=== PATIENT | female | born 1960 | race Caucasian/White ===

== ENCOUNTER 2023-01-22 08:30 | Outpatient (RCR) | payer OTHER, SELFPAY ==
--- NOTE | 2022-12-24 14:02 | HP.PTEVAL ---
Patient's Visit Information FLORES RILEY is a 62 year old F referred to Physical Therapy by Dr. Israel Manzo DO with a diagnosis of BURSITIS. Date of Evaluation: 12/24/22 Physical Therapist: Crystal Barrow PT, Cert MDT - Visit Plan Frequency: 2-3x /Week Duration: 4-6 Weeks Plan: LE ROM, STRETCHING AND STRENGTHENING INCLUDING IT BAND STRETCHING AND R GLUT MED STRENGTHENING. CORE STRENGTHENING. FOCUS ON STRENGTH AND STABILITY TO IMPROVE GAIT. 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 Disability: NO. Present symptoms: INTERMITTENT LEFT HIP PAIN. Present since: CHRONIC - YEARS AGO. Pain Scale: WORST 5/10 (BAD ENOUGHT TO MAKE ME LIMP), 0/10. Currently: 0/10. Is it getting better, worse or staying the same: STAYING THE SAME. Commenced as a result of: NO APPARENT REASON. Symptoms at onset: SAME. Worse: WALKING ON A HARD SURFACE. Better: AVOIDING WALKING ON HARD SURFACES. Disturbed sleep: NO. Previous history/Previous treatment: 6 CHIROPRACTIC SESSIONS RECENTLY FOR HIP PAIN WITH NO BENEFIT. CHIROPRACTIC TREATMENTS ALSO INCLUDED BACK ADJUSTMENTS FOR PELVIC TILT ISSUES. NO SIGNIFICANT BACK HISTORY. Treatment this episode: NSAID AND CORTISONE SHOT 12/12/22. PATIENT DOES NOT NOTICE ANY IMPROVEMENT YET. Coughing/sneezing/straining: NO. Gait: CAUSES LIMPING AT TIMES. Bowel or Bladder Dysfunction: NO. Accidents: NO. Unexplained weight loss: NO. Imaging: L HIP X-RAY RECENTLY - LOOKED GOOD PER PATIENT REPORT. PMH/Recent major surgery: POSTERIOR TIBIALIS TENDON DYSFUNCTION - CHRONIC AND WEARS BRACE WHEN WALKING (AT LEAST 5 YEARS). R FOOT BUNION WITH SIGNIFICANT TOE CROSSING - CONSIDERED SURGERY IN THE PAST BUT NO PAIN. - Objective Sitting/Standing Posture: INCREASED KYPHOSIS. NORMAL TO INCREASED LORDOSIS. NO RELEVANT LATERAL SHIFT. Active Correction of posture: NE. Other Observations: INDEP GAIT INTO PT WITH R ANKLE BRACE. R KNEE GENU VALGUS AND ANKLE PRONATION. PELVIC DROP DURING L SWING PHASE OF GAIT. Sensory deficit: SHALOM LE LIGHT TOUCH SENSATION GROSSLY INTACT AND SYMMETRICAL. ROM deficit: SHALOM LE'S WFL BUT R ANKLE INV/EV NOT TESTING. BRACE ON THROUGHOUT TESTING. MILD L IT BAND TIGHTNESS. Motor deficit: PATIENT ABLE TO WALK ON TOES AND WALK ON HEELS WITHOUT UE ASSIST. SHALOM LE STRENGTH GROSSLY 5/5 WITH MMT'ING EXCEPT HIPS 4-/5. POOR CORE STRENGTH. Dural Signs: NEGATIVE SHALOM LE'S. Lumbar mvmt loss: flex - NIL. ext - MIN. R SG - MIN. L SG - MIN. PATIENT DENIES PAIN IN HIP AND BACK WITH TESTING. Palpation: TENDERNESS WITH PALPATION OF L GREATER TROCH REGION. TREATMENT: INSTRUCTED IN IT BAND STRETCHING. WRITTEN HEP INSTRUCTIONS GIVEN. TRIED STANDING AND SUPINE STRETCHING WITH MUCH BETTER RESULT AND ABILITY TO USE PROPER TECHNIQUE IN LYING. ONLY GAVE HOME INSTRUCTION FOR LYING. ALSO CORRECTED PATIENTS TECHNIQUE WITH SELF SHALOM PIRIFORMIS STRETCHING SHE HAS BEEN DOING ON HER OWN. ALSO INSTRUCTED PATIENT IN PROPER POSTURE CONTROL IN SITTING AND FREQUENT BREAKS FROM SITTING. - Balance/Special Test Scores Lower Extremity Functional Score: 67 - Goals Goal 1:: DECREASE C/O L HIP PAIN Goal Time Frame: 4-6 Weeks Goal 2:: IMPROVE WALKING FUNCTION ON HARD SURFACES Goal Time Frame: 4-6 Weeks Goal 3:: INDEP HEP Goal Time Frame: 4-6 Weeks - Anticipated Interventions Patient/Client Instruction: Educate patient on: Condition, Plan of Care, Risk Factors For the Purpose of:: To improve self management Therapeutic Exercise to Include: Strength training, Body mechanics, Postural training, Flexibilty training, Neuromotor development, In an aquatic setting, Dynamic Lumbar Stabilization For the Purpose of:: To decrease pain, To increase ROM, To improve muscle performance and motor function, To increase tolerance to activity/condition/position, To improve ability of physical actions for home/community/work/leisure Cryotherapy (ice pack, ice massage): Yes Thermo therapy (hot pack): Yes Ultrasound (thermal/non thermal): Yes For the Purpose of:: To decrease pain, To improve nutrient delivery to tissue Thank you for the opportunity to evaluate your patient. For Medicare and Medicare HMO plans, please review the plan of care and approve it. It will need to be FAXED BACK to us at [phone] for Medicare purposes. For Medicare only, by signing this I certify the plan of care. Please let me know if there are questions or concerns regarding this plan of care. Physician Signature: Date:
--- NOTE | 2023-01-22 09:00 | HP.PTDCSUM ---
It has been my pleasure to treat FLORES RILEY referred by Dr. Israel Manzo DO, with the diagnosis of Left Hip BURSITIS for a total of 9 visit(s). Discharge Date: Please see the following information for a summary of their discharge status. Subjective: PATIENT REPORTS SHE IS NO WORSE BUT NOT MUCH BETTER. STATES SHE FEELS A LOT STRONGER BUT THE PAIN ISN'T BETTER. REPORTS SHE HAD TO DO SOME PROLONGED WALKER ON HARD SURFACE AND HER HIP WAS KILLING HER. % Improvement: 10 Objective/Function: PATIENT WAS SEEN TODAY FOR RE-ASSESSMENT OF PROGRESS TOWARD THE SET PT GOALS AND THE NEED FOR FURTHER PHYSICAL THERAPY VS READINESS FOR DISCHARGE. SUBJECTIVE REPORTS OF L HIP PAIN ARE NOT IMPROVING AND LEFS SCORE IS WORSE. UPON EXAM TODAY THERE ARE NO SIGNIFICANT OBJECTIVE CHANGES SINCE INITIAL EVAL EXCEPT INCREASED SHALOM HIP STRENGTH TO 4/5. L HIP EXTERNAL ROTATION STRENGTH TESTING PROVOKES L LATERAL HIP PAIN. PATIENT IS INDEP WITH A TOLERABLE HEP. Goal 1:: DECREASE C/O L HIP PAIN Goal Progress: Not Progressing Goal 2:: IMPROVE WALKING FUNCTION ON HARD SURFACES Goal Progress: Not Progressing Goal 3:: INDEP HEP Goal Progress: Goal Met Plan: D/C DUE TO LACK OF PROGRESS WITH L HIP PAIN AND WALKING FUNCTION. PHYSICIAN RE-ASSESSMENT RECOMMENDED. PATIENT AGREEABLE. If there are questions or concerns regarding this patient's physical therapy, please feel free to call me at [phone]. Thank you for the referral of this patient. Sincerely, Crystal Barrow, PT, Cert MDT Balance/Gait/Functional tests - Balance/Special Test Scores Lower Extremity Functional Score: 57
== END 2023-01-22 19:00 | disposition home or self-care (01) ==
LOC: PT 08:30
PROVIDERS: PCP Family Medicine; Referring Provider Orthopaedic Surgery; Visit Provider Orthopaedic Surgery
DX: M70.60 Trochanteric bursitis, unspecified hip (principal)
CPT/HCPCS: 97110; 97161; 97164; 97530

== ENCOUNTER → 2023-01-30 | Outpatient (CLI) | payer OTHER, SELFPAY ==
--- NOTE | 2023-01-30 07:45 | MRI_ITS ---
EXAM: MR LEFT LOWER EXTREMITY WITHOUT INTRAVENOUS CONTRAST, HIP CLINICAL INDICATION: LEFT hip pain x years, NKI, no relief with therapy of injections TECHNIQUE: Multiplanar and multisequence MR images of the left hip without intravenous contrast. COMPARISON: No relevant prior studies available. FINDINGS: TENDONS: FLEXORS: Unremarkable. Intact. EXTENSORS/HAMSTRING: Unremarkable. Intact. ABDUCTORS: Focal low-grade partial-thickness tearing of the right gluteus minimus tendon near its trochanteric attachment. ADDUCTORS: Unremarkable. Intact. ROTATORS: Unremarkable. Intact. MUSCLES: See above. FLUID: Fluid signal along the left greater trochanter and right greater trochanter are suggestive of trochanteric bursitis. No significant joint effusion. LABRUM: Unremarkable. No significant acetabular labral tearing. CARTILAGE: Unremarkable. Articular cartilage intact. BONES/JOINTS: At least a low-grade partial-thickness tear involving the conjoint tendon at the ischial tuberosity, left worse than right. No femoral neck fracture. No avascular necrosis of the femoral head. No sacral insufficiency fracture. No abnormal marrow signal alterations. INTRAPERITONEAL SPACE: Unremarkable. No free air. No free fluid in the pelvis. MRI/Lower Ext Joint Only (Routine) IMPRESSION: 1. Focal low-grade partial-thickness tearing of the right gluteus minimus tendon near its trochanteric attachment. 2. At least a low-grade partial-thickness tear involving the conjoint tendon at the ischial tuberosity, left worse than right. 3. Fluid signal along the left greater trochanter and right greater trochanter are suggestive of trochanteric bursitis. Electronically Signed: Chapin Lancaster MD at 21:33 EDT ,
== END | disposition home or self-care (01) ==
PROVIDERS: PCP Family Medicine; Referring Provider Orthopaedic Surgery; Visit Provider Orthopaedic Surgery
DX: M70.62 Trochanteric bursitis, left hip (principal)
CPT/HCPCS: 73721